=== PATIENT | female | born 1970 ===

== ENCOUNTER 2024-07-02 16:32 | Emergency (ER) | payer SELFPAY ==
[2024-07-02 16:37] VITALS: BP 163/91; PULSE 93; RESP 16; TEMP 36.6; O2SAT 100
--- NOTE | 2024-07-02 18:18 | PC.NURSE ---
came to triage desk and said I can't wait anymore. I don't feel good. Informed pt to come back if s/s worsened. Departed ED with family member, A/O x 4, no distress, skin pwd and gait is steady
== END 2024-07-02 18:18 | disposition left against medical advice (07) ==
DX: R10.13 Epigastric pain (principal)
CPT/HCPCS: 99199